=== PATIENT | female | born 1990 | race Caucasian/White ===

== ENCOUNTER 2022-08-15 10:42 | Emergency (ER) | payer BC ==
[2022-08-15 11:23] VITALS: BP 156/88; PULSE 59; RESP 16; TEMP 97.7; BMI 32.5
[2022-08-15] MEDS ORDERED: IBUPROFEN 600 MG TABLET (FP) PO ONE ×2 (11:48→11:50)
== END 2022-08-15 14:17 | disposition home or self-care (01) ==
LOC: FER 10:42
DX: S86.991A Other injury of unspecified muscle(s) and tendon(s) at lower leg level, right leg, initial encounter (principal); W10.9XXA Fall (on) (from) unspecified stairs and steps, initial encounter
CPT/HCPCS: 73562-TC-LT-FY; 99283-25